=== PATIENT | female | born 1960 | race Caucasian/White ===

== ENCOUNTER → 2016-10-01 | Outpatient (CLI) | payer OTHER ==
[~2016-10-01] MED LIST: CALCTAB65 PO; CLON0.5T3 PO; DOXY100C76 PO; FEXO1TAB46 PO; HYDR200T5 PO; IBUP-1050 PO; LIFI5DRO OPB; LORA-741 PO; MEDR2.5T PO; MISCCAP80 PO; MONT1TAB3 PO; MULT-330 PO; MULT-506 PO; OMEG10007 PO; RSTOPS OPB; SERT25TA PO; [UNRECOGNIZED DRUG - CODE] PO; [UNRECOGNIZED DRUG - OTHER] PO
--- NOTE | 2016-10-01 12:03 | DIAGNOSTIC IMAGING REPORT ---
PELVIS 1 OR 2 VIEW ROUTINE CLINICAL HISTORY: Polyarthralgia. Pelvic pain. COMPARISON STUDY: 03/18/2011 FINDINGS: No fractures are visualized. There are no erosive or destructive changes. The joint space of each hip appear well-preserved for age. There are several pelvic basin calcifications likely representing a phlebolith. There is a probable surgical clip within the left hemipelvis. IMPRESSION: Unremarkable bony pelvis for age Electronically signed by: Pillo Gloria M.D. 10/01/2016 12:02 PM Dictated Date/Time: 10/01/2016 11:56 AM
--- NOTE | 2016-10-01 12:04 | DIAGNOSTIC IMAGING REPORT ---
RIGHT HAND MIN 3 VIEWS ROUTINE CLINICAL HISTORY: Right hand pain. Polyarthritis. COMPARISON: None. DISCUSSION: No fractures are visualized. There are no dislocations. There are no erosive or destructive lesions. There are minor osteoarthritic changes most pronounced the level the first carpal metacarpal joint. IMPRESSION: 1. Mild osteoarthritic change 2. No evidence of erosive disease Electronically signed by: Pillo Gloria M.D. 10/01/2016 12:03 PM Dictated Date/Time: 10/01/2016 12:02 PM
--- NOTE | 2016-10-01 12:05 | DIAGNOSTIC IMAGING REPORT ---
RIGHT FOOT MIN 3 VIEWS ROUTINE CLINICAL HISTORY: Polyarthralgia. Right foot pain COMPARISON: None. DISCUSSION: No fractures are visualized. There are osteoarthritic changes the level the first metatarsal phalangeal joint. There are subchondral cysts present. There is no erosive disease. IMPRESSION: 1. No acute fractures 2. Osteoarthritic changes the level the first metatarsal phalangeal joint 3. No evidence of erosive disease Electronically signed by: Pillo Gloria M.D. 10/01/2016 12:04 PM Dictated Date/Time: 10/01/2016 12:03 PM
--- NOTE | 2016-10-01 12:06 | DIAGNOSTIC IMAGING REPORT ---
L-SPINE MIN 4 VIEWS ROUTINE CLINICAL HISTORY: Low back pain. Polyarthralgia. COMPARISON: Lumbar spine radiographs November 29, 2014. FINDINGS: There is slight rightward curvature of the lumbar spine. This is unchanged. Alignment is otherwise anatomic. Vertebral body heights are maintained. There is no fracture or suspicious lesion. Sacroiliac joints are intact. Disc spaces are preserved. There is mild multilevel facet arthrosis and osteophytosis. IMPRESSION: 1. No lumbar spine fracture. 2. Mild multilevel degenerative disc disease and facet arthrosis of the lumbar spine. 3. Slight rightward curvature of the lumbar spine which is unchanged. Electronically signed by: Elijah Hernandez M.D. 10/01/2016 12:05 PM Dictated Date/Time: 10/01/2016 12:03 PM
[2016-10-01 13:20] LABS: C-REACTIVE PROTEIN < 0.29 mg/dl (0-0.29); TOTAL IRON BINDING CAPACITY 351 mcg/dl (250-450)
[2016-10-04 18:27] LABS: ALBUMIN 4.4 G/DL (3.8-4.8); ANTI-CENTROMERE AB <1.0 NEG AI (<1.0 NEG); ANTI-SS-A <1.0 NEG AI (<1.0 NEG); ANTI-SS-B <1.0 NEG AI (<1.0 NEG); CYCLIC CITRULLINATED PEPT IGG <16 UNITS (<20); DNA ds CRITHIDIA NEGATIVE (NEGATIVE); GAMMA GLOBULIN 0.8 G/DL (0.8-1.7); Sm Antibody <1.0 NEG AI (<1.0 NEG); TOTAL PROTEIN 6.7 G/DL (6.2-8.3)
== END | disposition home or self-care (01) ==
LOC: C.RAD1850 11:24
PROVIDERS: ATTEND Internal Medicine Rheumatology
DX: M25.50 Pain in unspecified joint (principal); M54.5 Low back pain; M79.642 Pain in left hand

== ENCOUNTER → 2016-11-01 | Outpatient (CLI) | payer OTHER ==
--- NOTE | 2016-11-04 14:00 | MAMMOGRAPHY REPORT ---
BILATERAL DIGITAL SCREENING MAMMOGRAM TOMOSYNTHESIS WITH CAD: 11/01/2016 CLINICAL HISTORY: Routine screening. Patient has no complaints. TECHNIQUE: Breast tomosynthesis in addition to standard 2D mammography was performed. Current study was also evaluated with a Computer Aided Detection (CAD) system. Bilateral CC and MLO 2-D and td synthesis images were obtained. Tomosynthesis images were obtained of the implant displaced views o nly. COMPARISON: Comparison is made to exams dated: 09/20/2014 mammogram, 11/01/2015 mammogram, 09/17/2013 m ammogram, 08/10/2012 mammogram, and 07/13/2010 mammogram - [facility]. BREAST COMPOSITION: The tissue of both breasts is heterogeneously dense, which may obscure small ma sses. FINDINGS: There is a newly visualized oval circumscribed 4 mm mass seen within the right superior br east on the MLO view, thought to project laterally on the cc view, for which ultrasound and possible additional spot compression views are recommended for further evaluation. This may represent a cys t or potentially an intramammary lymph node. The remainder of both breasts are stable compared to prior exams, without suspicious masses, calcifi cations, or areas of architectural distortion noted. Bilateral subpectoral saline implants are inta ct. IMPRESSION: ACR BI-RADS CATEGORY 0: INCOMPLETE EVALUATION: NEED ADDITIONAL IMAGING EVALUATION Right superior breast mass, for which additional imaging evaluation is recommended. The patient rosa l be called to schedule an appointment. Approximately 10% of breast cancers are not detected with mammography. A negative mammographic repor t should not delay biopsy if a clinically suggestive mass is present. Radha Lopez M.D. ah/:11/01/2016 16:41:20 Quantitative Analyst Developer: Reanna TALLEY(Jomar)(M), [facility] letter sent: Addl Imaging 0 BI-RADS Code: ACR BI-RADS Category 0: Incomplete Evaluation: Need Additional Imaging Evaluation
== END | disposition home or self-care (01) ==
LOC: C.MAMM 09:59
PROVIDERS: ATTEND Obstetrics & Gynecology
DX: Z12.31 Encounter for screening mammogram for malignant neoplasm of breast (principal); Z98.82 Breast implant status; N63 Unspecified lump in breast

== ENCOUNTER → 2016-11-06 | Outpatient (CLI) | payer OTHER ==
--- NOTE | 2016-11-06 14:25 | MAMMOGRAPHY REPORT ---
ULTRASOUND OF RIGHT BREAST: 11/06/2016 CLINICAL HISTORY: Callback from screening mammogram for right breast mass. COMPARISON: Comparison is made to exams dated: 09/20/2014 mammogram, 11/01/2015 mammogram, 09/17/2013 m ammogram, 08/10/2012 mammogram, and 07/30/2011 mammogram - [facility]. TECHNIQUE: Real-time targeted ultrasound of the right breast was performed. FINDINGS: Real-time, high resolution targeted ultrasound was performed of the right upper outer jie drant in the region of the circumscribed mammographic mass seen on the recent screening mammogram. In the right breast at 9:00, approximately 5 cm from the nipple, there is a lobulated circumscribed anechoic mass with a few thin internal septations, measuring 6 x 3 x 4 mm. This is consistent with a benign cyst cluster. A similar appearing circumscribed anechoic mass with a thin internal septati on is also seen within the right breast at 10:00, 3 cm from the nipple, measuring 4 x 3 mm, also con sistent with a benign cyst. One of these is felt to correspond with the mammographic mass. An anec hoic 2 mm benign simple cyst is also seen within the right breast at 10:00, 2 cm from the nipple. N o suspicious solid masses were evident. IMPRESSION: ACR BI-RADS CATEGORY 2: BENIGN Two small benign cyst clusters seen within the right breast at 9 and 10:00 on ultrasound, one of whi ch corresponds with the mammographic mass. There is no sonographic evidence of malignancy. A 1 yea r screening mammogram is recommended. The patient was verbally notified of the results. Radha Lopez M.D. /:11/06/2016 08:54:36 Quality Technician: Radha Lopez MD, [facility] letter sent: Normal 1/2 BI-RADS Code: ACR BI-RADS Category 2: Benign
== END | disposition home or self-care (01) ==
LOC: C.MAMM 08:16
PROVIDERS: ATTEND Obstetrics & Gynecology
DX: N63 Unspecified lump in breast (principal)

== ENCOUNTER → 2016-11-30 | Outpatient (CLI) | payer OTHER ==
[~2016-11-30] MED LIST changes: -CLON0.5T3 PO; -DOXY100C76 PO; -RSTOPS OPB
[2016-11-30 13:34] LABS: BASO % 0.4 %; BASO ABS # 0.02 K/uL (0-0.2); COMPLETE YES; EOS % 0.7 %; HEMATOCRIT 40.6 % (37-47); IG% 0.2 %; LYMPH % 30.3 %; LYMPH ABS # 1.64 K/uL (1.2-3.4); MEAN CELL VOLUME 89.8 fL (80-100); MEAN CORPUSCULAR HGB CONC 34.5 g/dl (32-36); MEAN PLATELET VOLUME 11.5 fL (7.4-10.4); MONO % 9.8 %; NEUT % 58.6 %; PLATELET COUNT 177 K/uL (130-400); RED BLOOD COUNT 4.52 M/uL (4.2-5.4); WHITE BLOOD COUNT 5.41 K/uL (4.8-10.8)
== END | disposition home or self-care (01) ==
LOC: C.LABBC 11:38
PROVIDERS: ATTEND Anesthesiology
DX: Z01.812 Encounter for preprocedural laboratory examination (principal)

== ENCOUNTER 2016-12-28 11:59 | Emergency (ER) | payer OTHER ==
[~2016-12-28] VITALS: Ht 172.7 cm; Wt 57.0 kg
[~2016-12-28 11:59] MED LIST changes: -LORA-741 PO; -MULT-330 PO; -OMEG10007 PO; -[UNRECOGNIZED DRUG - CODE] PO
[2016-12-28 12:01] VITALS: TEMP 36.5; Ht 172.7 cm; Wt 57.0 kg
[2016-12-28] MEDS ORDERED: MULT-330 PO (12:19)
[2016-12-28] MEDS ORDERED: [UNRECOGNIZED DRUG - CODE] PO (12:19)
[2016-12-28] MEDS ORDERED: OMEG10007 PO (12:19)
--- NOTE | 2016-12-28 13:14 | DIAGNOSTIC IMAGING REPORT ---
CHEST ONE VIEW PORTABLE CLINICAL HISTORY: CP dyspnea COMPARISON STUDY: N8 2010 FINDINGS: The bones soft tissues and hemidiaphragms are normal. The cardiomediastinal silhouette is normal. The lungs are clear. The pulmonary vasculature is normal. IMPRESSION: Negative chest. Electronically signed by: Salvador Harris M.D. 12/28/2016 1:13 PM Dictated Date/Time: 12/28/2016 1:13 PM
[2016-12-28 13:31] LABS: BASO % 0.6 %; BASO ABS # 0.02 K/uL (0-0.2); COMPLETE YES; EOS % 1.4 %; HEMATOCRIT 38.4 % (37-47); LYMPH % 37.1 %; LYMPH ABS # 1.29 K/uL (1.2-3.4); MEAN CELL VOLUME 91.9 fL (80-100); MEAN CORPUSCULAR HEMOGLOBIN 31.1 pg (25-34); MEAN CORPUSCULAR HGB CONC 33.9 g/dl (32-36); MEAN PLATELET VOLUME 11.4 fL (7.4-10.4); MONO % 9.5 %; NEUT % 51.4 %; PLATELET COUNT 172 K/uL (130-400); RED BLOOD COUNT 4.18 M/uL (4.2-5.4); WHITE BLOOD COUNT 3.48 K/uL (4.8-10.8)
[2016-12-28 13:40] LABS: PARTIAL THROMBOPLASTIN RATIO 0.9; PROTHROMBIN TIME (PATIENT) 10.8 SECONDS (9.0-12.0)
--- NOTE | 2016-12-28 13:47 | DIAGNOSTIC IMAGING REPORT ---
Venous Doppler left leg LEFT VENOUS DOPP LOWER EXT UNILAT CLINICAL HISTORY: LLE pain pain. Edema. TECHNIQUE: Venous Doppler COMPARISON STUDY: None FINDINGS: Normal study IMPRESSION: Normal study Electronically signed by: Salvador Harris M.D. 12/28/2016 1:45 PM Dictated Date/Time: 12/28/2016 1:45 PM
[2016-12-28 13:58] LABS: BUN/CREATININE RATIO 18.8 (10-20); CALCIUM 8.8 mg/dl (8.5-10.1); CREATININE 0.92 mg/dl (0.60-1.20); POTASSIUM 3.9 mmol/L (3.5-5.1)
--- NOTE | 2016-12-28 14:18 | EMERGENCY ROOM VISIT NOTE ---
History Report prepared by Joon: Jaylon Barreto Under the Supervision of: Dr. Clarissa Celis M.D. First contact with patient: 12:32 Chief Complaint: REFERRED BY DOCTOR Stated Complaint: PAIN IN LEFT CALF, PAIN IN CHEST History of Present Illness The patient is a 56 year old female who presents to the Emergency Room with complaints of left calf pain that began 5 days ago. She rates her pain a 5/10 in severity. Personally, she does not have a history of DVT's, but her sister does, so she wanted to get checked. She then began to experience chest pain and a dry cough with exertion. She does not have a history of smoking. She denies any fevers, abdominal pain, emesis, and chest pain at rest. She has some chest discomfort with deep breaths. She is currently taking estrogen supplements. Her pain does not radiate to other places. She had a cervical epidural in October due to pain. She was very sedentary secondary to the pain. Source of History: patient Onset: 5 days ago Position: leg (left) Symptom Intensity: 5/10 Quality: ache Timing: constant Modifying Factors (Worsening): exertion Associated Symptoms: + cough, No abdominal pain, No chest pain (None at rest , some with exertion), No fevers, No vomiting Review of Systems See HPI for pertinent positives & negatives. A total of 10 systems reviewed and were otherwise negative. Past Medical & Surgical Medical Problems: (1) No Known Active Medical Problems Surgical Problems: (1) History of appendectomy (2) Hx of spinal fusion Family History Omitted secondary to age. Social History Smoking Status: Former Smoker Smokeless Tobacco Use: No Drug Use: none Marital Status: Housing Status: lives with family Current/Historical Medications Scheduled Calcium Carbonate-Vitamin D (Calcium 500 + D), 1 CHW PO BID Esterified Estrogens (Menest), 1 TAB PO Q2D Fexofenadine Hcl (Rosa), 180 MG PO DAILY Fish Oil ([place]-3), 1 CAP PO TIDM Lifitegrast (Xiidra), 1 DROP OPB BID Multiple Minerals W/ Vitamins (Multi Usama Minerals), 1 TAB PO TIDM Multivitamin (Multivitamin), 1 TAB PO DAILY Sertraline (Zoloft), 25 MG PO DAILY Scheduled PRN Ibuprofen (Advil), 400 MG PO UD PRN for Headache or Pain Probiotic Product (Probiotic), 1 CAP PO DAILY PRN for COLON HEALTH Allergies Coded Allergies: Adhesives (Verified Allergy, Unknown, RASH, 12/28/16) Sulfa Drugs (Verified Allergy, Unknown, TONGUE SWELLING, 12/28/16) Physical Exam Vital Signs Date Time Temp Pulse Resp B/P Pulse Ox O2 Delivery O2 Flow Rate FiO2 12/28/16 14:47 65 16 121/82 100 12/28/16 14:27 57 15 122/80 98 Room Air 12/28/16 13:00 64 16 128/83 97 Room Air 12/28/16 12:01 36.5 77 16 135/85 96 Room Air Physical Exam Vital signs reviewed. General: Well-appearing female, in no significant distress. HEENT: No scleral icterus, PERRLA, neck supple. Atraumatic. Cardiovascular: Regular rate and rhythm, no extra sounds. Pulmonary: Clear to auscultation bilaterally, normal work of breathing. Abdomen: Soft, nontender, nondistended, positive bowel sounds. Musculoskeletal: Mild tenderness over the left proximal calf. No swelling. Neurologic: Patient awake alert and oriented x 3, full strength in all 4 extremities. Cranial nerves 2 through 12 grossly intact. Skin: Warm, dry, no rash Medical Decision & Procedures ER Provider Diagnostic Interpretation: X-ray results as stated below per interpretation by me and the radiologist: Venous Doppler left leg LEFT VENOUS DOPP LOWER EXT UNILAT CLINICAL HISTORY: LLE pain pain. Edema. TECHNIQUE: Venous Doppler COMPARISON STUDY: None FINDINGS: Normal study IMPRESSION: Normal study Electronically signed by: Salvador Harris M.D. 12/28/2016 1:45 PM Dictated Date/Time: 12/28/2016 1:45 PM CHEST ONE VIEW PORTABLE CLINICAL HISTORY: CP dyspnea COMPARISON STUDY: N8 2010 FINDINGS: The bones soft tissues and hemidiaphragms are normal. The cardiomediastinal silhouette is normal. The lungs are clear. The pulmonary vasculature is normal. IMPRESSION: Negative chest. Electronically signed by: Salvador Harris M.D. 12/28/2016 1:13 PM Dictated Date/Time: 12/28/2016 1:13 PM Laboratory Results 12/28/16 13:05 Red Blood Count 4.18, Mean Corpuscular Volume 91.9, Mean Corpuscular Hemoglobin 31.1, Mean Corpuscular Hemoglobin Concent 33.9, Mean Platelet Volume 11.4, Neutrophils (%) (Auto) 51.4, Lymphocytes (%) (Auto) 37.1, Monocytes (%) (Auto) 9.5, Eosinophils (%) (Auto) 1.4, Basophils (%) (Auto) 0.6, Neutrophils # (Auto) 1.79, Lymphocytes # (Auto) 1.29, Monocytes # (Auto) 0.33, Eosinophils # (Auto) 0.05, Basophils # (Auto) 0.02 12/28/16 13:05 Test 12/28/16 13:05 12/28/16 13:12 White Blood Count 3.48 K/uL (4.8-10.8) Red Blood Count 4.18 M/uL (4.2-5.4) Hemoglobin 13.0 g/dL (12.0-16.0) Hematocrit 38.4 % (37-47) Mean Corpuscular Volume 91.9 fL (80-100) Mean Corpuscular Hemoglobin 31.1 pg (25-34) Mean Corpuscular Hemoglobin Concent 33.9 g/dl (32-36) Platelet Count 172 K/uL (130-400) Mean Platelet Volume 11.4 fL (7.4-10.4) Neutrophils (%) (Auto) 51.4 % Lymphocytes (%) (Auto) 37.1 % Monocytes (%) (Auto) 9.5 % Eosinophils (%) (Auto) 1.4 % Basophils (%) (Auto) 0.6 % Neutrophils # (Auto) 1.79 K/uL (1.4-6.5) Lymphocytes # (Auto) 1.29 K/uL (1.2-3.4) Monocytes # (Auto) 0.33 K/uL (0.11-0.59) Eosinophils # (Auto) 0.05 K/uL (0-0.5) Basophils # (Auto) 0.02 K/uL (0-0.2) RDW Standard Deviation 46.0 fL (36.4-46.3) RDW Coefficient of Variation 13.7 % (11.5-14.5) Immature Granulocyte % (Auto) 0.0 % Immature Granulocyte # (Auto) 0.00 K/uL (0.00-0.02) Prothrombin Time 10.8 SECONDS (9.0-12.0) Prothromb Time International Ratio 1.0 (0.9-1.1) Activated Partial Thromboplast Time 24.5 SECONDS (21.0-31.0) Partial Thromboplastin Ratio 0.9 Anion Gap 4.0 mmol/L (3-11) Est Creatinine Clear Calc Drug Dose 60.0 ml/min Estimated GFR () 79.6 Estimated GFR (Non- 68.6 BUN/Creatinine Ratio 18.8 (10-20) Calcium Level 8.8 mg/dl (8.5-10.1) Total Bilirubin 1.0 mg/dl (0.2-1) Direct Bilirubin 0.2 mg/dl (0-0.2) Aspartate Amino Transf (AST/SGOT) 31 U/L (15-37) Alanine Aminotransferase (ALT/SGPT) 36 U/L (12-78) Alkaline Phosphatase 44 U/L (45-117) Total Protein 6.7 gm/dl (6.4-8.2) Albumin 3.7 gm/dl (3.4-5.0) Bedside D-Dimer 313 ng/mlFEU (0-450) Laboratory results per my review. ECG Indication: chest pain Rate (beats per minute): 63 Rhythm: normal sinus Findings: no acute ischemic change, no ectopy, other (Questionable old septal infarct) ED Course 1232: Past medical records reviewed. The patient was evaluated in room B9. A complete history and physical examination was performed. 1445: Upon reevaluation, the patient appeared to have improvement of her symptoms. I discussed findings with her. She verbalized agreement of the treatment plan. She was discharged home. Medical Decision Differential diagnosis: Etiologies such as cardiac ischemia, aortic dissection, pulmonary embolism, pneumonia, pneumothorax, musculoskeletal, infections, pericarditis, myocarditis , esophageal rupture, gastrointestinal, as well as others were entertained. This patient was evaluated and appeared to be in no significant distress. Physical examination is fairly unrevealing. Ultrasound of the left lower extremity was obtained and is negative for DVT. Chest x-ray was performed and is negative. Laboratory work reveals negative cardiac enzymes, d-dimer is normal. EKG reveals no evidence of acute ischemia. Patient was informed of the findings. At this time there is no evidence of cardiac ischemia or thromboembolic disease. She will be discharged follow-up with the primary care physician and asked to return to the ER for worsening of symptoms or any medical concerns. Impression Primary Impression: Left sided chest pain Additional Impression: Pain of left calf Scribe Attestation The scribe's documentation has been prepared under my direction and personally reviewed by me in its entirety. I confirm that the note above accurately reflects all work, treatment, procedures, and medical decision making performed by me. Departure Information Dispostion Home / Self-Care Referrals Sunny Dickey M.D. (PCP) Bertin Mckenzie M.D. Forms HOME CARE DOCUMENTATION FORM, IMPORTANT VISIT INFORMATION, WORK / SCHOOL INSTRUCTIONS Patient Instructions My [facility] Additional Instructions Diagnosis: Chest pain, calf pain Ibuprofen 600 mg every 6 hours as needed for pain with food. Drink plenty of fluids. Follow up with your doctor this week for reevaluation. Return to emergency for worsening of symptoms or any medical concerns. Problem Qualifiers
[2016-12-28 14:47] VITALS: BP 121/82; PULSE 65; O2SAT 100
== END 2016-12-28 14:49 | disposition home or self-care (01) ==
LOC: C.EDB 11:59
DX: M79.662 Pain in left lower leg (principal); R07.9 Chest pain, unspecified; Z98.1 Arthrodesis status; Z87.891 Personal history of nicotine dependence; Z79.899 Other long term (current) drug therapy

== ENCOUNTER → 2017-02-10 | Outpatient (CLI) | payer OTHER ==
[~2017-02-10] MED LIST changes: -HYDR200T5 PO; -MONT1TAB3 PO; +MULT-330 PO; +OMEG10007 PO; +[UNRECOGNIZED DRUG - CODE] PO; -[UNRECOGNIZED DRUG - OTHER] PO
== END | disposition home or self-care (01) ==
LOC: C.PAPS 15:49
PROVIDERS: ATTEND Physician Assistant
DX: Z12.4 Encounter for screening for malignant neoplasm of cervix (principal)

== ENCOUNTER 2017-03-24 12:22 | Inpatient (IN) | payer OTHER ==
[~2017-03-24] VITALS: Ht 172.7 cm; Wt 59.6 kg
[~2017-03-24 12:22] MED LIST changes: -MEDR2.5T PO
[2017-03-24] MEDS ORDERED: ONDANSETRON INJ 2 MG/ML 2 ML VIAL IV STA (12:31)
[2017-03-24] MEDS ORDERED: MoRPHine SULFATE 4 MG/ML 1 ML CARP\\VIAL IV STA (12:31)
[2017-03-24] MEDS ORDERED: SODIUM CHLORIDE 0.9% 1000ML 1,000 ML IV ONE (12:31)
[2017-03-24] MEDS ORDERED: SODIUM CHLORIDE 0.9% 1000ML 1,000 ML IV STA (12:31)
[2017-03-24] MEDS ORDERED: MEDR2.5T PO (12:36)
--- NOTE | 2017-03-24 12:41 | EMERGENCY ROOM VISIT NOTE ---
History Report prepared by Joon: Bruce Reece Under the Supervision of: Dr. Prem Randall M.D. First contact with patient: 12:24 History of Present Illness The patient is a 56 year old female who presents to the Emergency Room with complaints of worsening back pain after getting thrown off of a horse prior to arrival. The patient states that she was riding a horse, and it bucked, and she fell off and landed on her lower back. She states that she was wearing a helmet , and she does not think that she hit her head. She additionally states that she is having some neck pain. The patient denies any abdominal pain, teeth pain , jaw pain, chest pain, or leg pain. She states that she has some tingling in her hands, though this occasionally happens. The patient states that the pain is not worsened with breathing. The patient states that she has a history of a fusion in her neck, though she has no other medical problems, and she does not take any blood thinners. Source of History: patient Onset: prior to arrival Position: back (lower) Timing: worsening Associated Symptoms: + neck pain, No chest pain, No SOB, No abdominal pain Review of Systems See HPI for pertinent positives & negatives. A total of 10 systems reviewed and were otherwise negative. Past Medical & Surgical Medical Problems: (1) Burst fracture of lumbar vertebra (2) No Known Active Medical Problems Surgical Problems: (1) History of appendectomy (2) Hx of spinal fusion Old medical records were reviewed. Nurse's notes were reviewed and I agree with. Social History Smoking Status: Former Smoker Drug Use: none Marital Status: Housing Status: lives with family Current/Historical Medications Scheduled Esterified Estrogens (Menest), 1 TAB PO DAILY Fexofenadine Hcl (Rosa), 180 MG PO DAILY Medroxyprogesterone (Provera), 2.5 MG PO DAILY Sertraline (Zoloft), 25 MG PO DAILY Scheduled PRN Ibuprofen (Advil), 400 MG PO UD PRN for Headache or Pain Allergies Coded Allergies: Adhesives (Verified Allergy, Unknown, RASH, 12/28/16) Sulfa Antibiotics (Verified Allergy, Unknown, TONGUE SWELLS, 03/24/17) Physical Exam Vital Signs Date Time Temp Pulse Resp B/P (MAP) Pulse Ox O2 Delivery O2 Flow Rate FiO2 03/24/17 13:56 72 18 122/74 97 Room Air 03/24/17 12:27 37.0 65 18 100/74 100 Room Air Physical Exam General: Well developed well nourished in no acute distress, breathing comfortably on room air. Normal speech. Glascow coma score of 15 HEENT: Normal cephalic atraumatic. Pupils are equal round and reactive to light. Extraocular movements are intact. Oropharynx is pink with moist mucous membranes. No swelling of the mouth lips or tongue. No hyphema. No blood from the nose or septal hematoma. Mid face is stable. No dental trauma or malocclusion. Neck: Collared with a midline trachea. No meningeal signs or stiffness. No midline tenderness. No Stridor. Chest: Clear to auscultation bilaterally. No wheezes or rhonchi. No increased work of breathing. No rib or sternal tenderness. No subcutaneous air. No seat belt avelar or external signs of trauma. Heart: Regular rate and rhythm without murmurs or gallops. Abdomen: Soft nontender, nondistended without rebound guarding or rigidity. No seatbelt avelar or external signs of trauma Extremities: No cyanosis clubbing or edema. No calf tenderness or asymmetry. Spine/Back. Diffuse tenderness along the left posterior pelvis and lower lumbar spine . No CVA tenderness. Skin: Good turgor without rashes. Neurologic exam: Cranial nerves two through 12 are intact. Motor and sensation are intact and symmetrical throughout. Normal level of consciousness Medical Decision & Procedures ER Provider Diagnostic Interpretation: Radiology results as stated below per my review and radiologist interpretation: LUMBAR SPINE WITHOUT CLINICAL HISTORY: 56 years-old Female presenting with eval for trauma, thrown from horse. TECHNIQUE: Multidetector CT of the lumbar spine was performed without the use of intravenous contrast. IV contrast: None. A dose lowering technique was used consistent with the principles of ALARA (as low as reasonably achievable). COMPARISON: Plain radiographs from 10/01/2016. CT DOSE (mGy.cm): The estimated cumulative dose is 280.3 inclusive of the abdomen and pelvis. FINDINGS: Grinding Machine Operator Automatic topogram: Unremarkable. Mild deformity of the superior endplate of L1 with anterior greater than posterior vertebral body height loss of L1. Convexity of the superior portion of L1 posteriorly resulting in mild effacement of the spinal canal. Irregularity and convexity of the anterior portion of L1 also noted. Remaining vertebral bodies demonstrate normal height and alignment. Intervertebral disc spaces preserved. No significant degenerative change. No osseous neural foraminal narrowing. Paraspinal soft tissues suggest mild infiltration of paraspinal fat planes at the level of L1 with the remainder of paraspinal soft tissues within normal limits. IMPRESSION: Evidence of acute burst-type fracture of L1 with mild retropulsion of fracture fragments into the spinal canal. MR would better characterize the degree of spinal canal narrowing if clinically warranted. The report will be called/faxed according to standard departmental protocol. Electronically signed by: Tim Reed M.D. 03/24/2017 1:36 PM Dictated Date/Time: 03/24/2017 1:31 PM CERVICAL SPINE W/O CT DOSE: 252.35 mGy.cm HISTORY: Trauma eval for trauma TECHNIQUE: Multiaxial CT images of the cervical spine were performed and reformatted in the sagittal and coronal plane without the use of contrast. A dose lowering technique was utilized adhering to the principles of ALARA. COMPARISON: None. FINDINGS: No fractures. No subluxation. Prevertebral soft tissues and the C1-C2 interval are intact. No pneumothorax. Evidence for an anterior fusion at C5-C6. IMPRESSION: No fractures within the cervical spine. Postoperative change is noted The above report was generated using voice recognition software. It may contain grammatical, syntax or spelling errors. Electronically signed by: Salvador Harris M.D. 03/24/2017 1:17 PM Dictated Date/Time: 03/24/2017 1:10 PM ABDOMEN AND PELVIS CT WITH IV CONTRAST CT DOSE: 280.30 mGy.cm HISTORY: Fall from horse. Generalized abdominal pain. Low back pain. eval for trauma TECHNIQUE: Multiaxial CT images of the abdomen and pelvis were performed following the use of intravenous contrast. A dose lowering technique was utilized adhering to the principles of ALARA. COMPARISON STUDY: None. FINDINGS: There is an acute superior endplate compression fracture at L1 which demonstrates 4 mm of retropulsion of the posterior superior corner with mild central canal narrowing. Bilateral breast augmentation. Mild dependent changes seen within the lung bases posteriorly. No pneumoperitoneum. No pneumatosis. The liver, gallbladder, spleen, adrenal glands, and pancreas are unremarkable. An 8 mm hypodense lesion within the left kidney is too small to characterize but favors a cyst. Normal right kidney. No hydronephrosis. A left circumaortic renal vein. No retroperitoneal lymphadenopathy. A surgical clip in the left adnexa. The bladder and uterus are unremarkable. There is a pessary device identified. Mild subcutaneous fat straining within the right gluteal region. This favors a small soft tissue contusion. No bowel wall thickening or obstruction. IMPRESSION: 1. Mild acute superior endplate compression/burst fracture at L1 which demonstrates 4 mm of retropulsion and mild central canal narrowing. 2. Small subcutaneous right gluteal soft tissue contusion. Electronically signed by: Tal Bravo M.D. 03/24/2017 1:53 PM Dictated Date/Time: 03/24/2017 1:20 PM Laboratory Results Test 03/24/17 12:56 Bedside Hemoglobin 12.9 g/dl (12.0-16.0) Bedside Hematocrit 38 % (37-47) Bedside Sodium 140 mEq/L (135-144) Bedside Potassium 4.3 mEq/L (3.3-5.0) Bedside Chloride 104 mEq/L (101-112) Bedside Total CO2 22 mEq/l (24-31) Anion Gap 19.0 mmol/L (16-25) Bedside Blood Urea Nitrogen 20 mg/dl (7-18) Bedside Creatinine 1.1 mg/dl (0.6-1.3) Bedside Glucose (other) 143 mg/dl (70-99) Bedside Ionized Calcium (Rekha) 1.21 mmol/l (1.12-1.32) Laboratory studies as stated above per my review. Medications Administered Medications (Trade) Dose Ordered Sig/Up [facility] Route Start Time Stop Time Status Last Admin Dose Admin Sodium Chloride 1,000 ml @ 999 mls/hr Q1H1M STAT IV 03/24/17 12:31 03/24/17 13:31 DC 03/24/17 12:51 999 MLS/HR Sodium Chloride 1,000 ml @ 150 mls/hr Q6H40M ONCE IV 03/24/17 12:31 03/24/17 16:03 DC 03/24/17 12:51 150 MLS/HR Morphine Sulfate (MoRPHine SULFATE INJ) 4 mg NOW STAT IV 03/24/17 12:31 03/24/17 12:34 DC 03/24/17 12:51 4 MG Ondansetron HCl (Zofran Inj) 4 mg NOW STAT IV 03/24/17 12:31 03/24/17 12:34 DC 03/24/17 12:50 4 MG Morphine Sulfate (MoRPHine SULFATE INJ) 2 mg NOW STAT IV 03/24/17 13:58 03/24/17 13:59 DC 03/24/17 14:12 2 MG Oxycodone/ Acetaminophen (Percocet 5-325mg Tab) `1-2 TABS FOR PAIN `1 TAB... Q4H PRN PO 03/24/17 14:15 04/07/17 14:14 03/24/17 15:45 2 TAB Dextrose/Sodium Chloride 1,000 ml @ 75 mls/hr [id number] IV 03/24/17 14:13 04/23/17 14:12 03/24/17 16:14 75 MLS/HR ED Course 1224: Past medical records reviewed. The patient was evaluated in room C8, and a complete history and physical examination were performed. 1231: Zofran Inj 4mg IV, Morphine Sulfate 4mg IV, Sodium Chloride 1000 ml @ 150 mls/hr IV, Sodium Chloride 1000 ml @ 999 mls/hr IV 1240: I reevaluated the patient, and she was just getting her IV started. 1257: I reevaluated the patient, and she is feeling much more comfortable, and she is going to CT. 1326: I reassessed the patient, and she feels much better and is resting comfortably. 1358: Morphine Sulfate 2mg IV 1402: Discussed the patient's case with Dr. Laguna, Orthopedic Surgeon. The patient will be evaluated for further management. 1450: I reevaluated the patient, and she was doing well. Medical Decision Differentials include, but are not limited to; cervical fracture, lumbar fracture, internal injuries, and contusion. This patient comes in as described above. She suffered a mechanical fall from horse. She's complaining of low back pain towards the left buttocks as well as some mild neck pain. She was concerned about her neck as she has had surgery before. She has no numbness or weakness. She denies chest pain or shortness of breath or abdominal pain. She was warned home and denies any loss of consciousness or headache. IV access established and she was given morphine 4 mg IV and Zofran 4 mg IV. She did receive additional morphine 2 mg IV was resting very comfortably with this. I did a CAT scan of her neck which was unremarkable. He also obtained a CAT scan abdomen and pelvis as well as lumbar spine. It shows an L1 burst fracture with a small amount of retropulsion. Again, she is neurologically and neurovascularly intact. I had her rest bed while she was here and I did have Dr. Laguna, our spine surgeon, see her and he will be admitting her for further treatment and pain management. Head Trauma GCS Score: 15 Medication Reconcilliation Current Medication List: was personally reviewed by me Blood Pressure Screening Patient's blood pressure: Normal blood pressure Consults Time Called: 1400 Consulting Physician: Dr. Laguna, Orthopedic Surgery Returned Call: 1402 Discussed the patient's case with Dr. Laguna, Orthopedic Surgeon. The patient will be evaluated for further management. Impression Primary Impression: Fracture of lumbar spine Additional Impression: Cervical strain Scribe Attestation The scribe's documentation has been prepared under my direction and personally reviewed by me in its entirety. I confirm that the note above accurately reflects all work, treatment, procedures, and medical decision making performed by me. Departure Information Dispostion Being Evaluated By Surgeon Referrals ,Sunny Lacey M.D. (PCP) Problem Qualifiers
[2017-03-24 13:06] LABS: ISTAT CREATININE 1.1 mg/dl (0.6-1.3); ISTAT HEMOGLOBIN 12.9 g/dl (12.0-16.0); ISTAT IONIZED CALCIUM 1.21 mmol/l (1.12-1.32)
--- NOTE | 2017-03-24 13:18 | DIAGNOSTIC IMAGING REPORT ---
CERVICAL SPINE W/O CT DOSE: 252.35 mGy.cm HISTORY: Trauma eval for trauma TECHNIQUE: Multiaxial CT images of the cervical spine were performed and reformatted in the sagittal and coronal plane without the use of contrast. A dose lowering technique was utilized adhering to the principles of ALARA. COMPARISON: None. FINDINGS: No fractures. No subluxation. Prevertebral soft tissues and the C1-C2 interval are intact. No pneumothorax. Evidence for an anterior fusion at C5-C6. IMPRESSION: No fractures within the cervical spine. Postoperative change is noted The above report was generated using voice recognition software. It may contain grammatical, syntax or spelling errors. Electronically signed by: Salvador Harris M.D. 03/24/2017 1:17 PM Dictated Date/Time: 03/24/2017 1:10 PM
--- NOTE | 2017-03-24 13:37 | DIAGNOSTIC IMAGING REPORT ---
LUMBAR SPINE WITHOUT CLINICAL HISTORY: 56 years-old Female presenting with eval for trauma, thrown from horse. TECHNIQUE: Multidetector CT of the lumbar spine was performed without the use of intravenous contrast. IV contrast: None. A dose lowering technique was used consistent with the principles of ALARA (as low as reasonably achievable). COMPARISON: Plain radiographs from 10/01/2016. CT DOSE (mGy.cm): The estimated cumulative dose is 280.3 inclusive of the abdomen and pelvis. FINDINGS: Numerologist topogram: Unremarkable. Mild deformity of the superior endplate of L1 with anterior greater than posterior vertebral body height loss of L1. Convexity of the superior portion of L1 posteriorly resulting in mild effacement of the spinal canal. Irregularity and convexity of the anterior portion of L1 also noted. Remaining vertebral bodies demonstrate normal height and alignment. Intervertebral disc spaces preserved. No significant degenerative change. No osseous neural foraminal narrowing. Paraspinal soft tissues suggest mild infiltration of paraspinal fat planes at the level of L1 with the remainder of paraspinal soft tissues within normal limits. IMPRESSION: Evidence of acute burst-type fracture of L1 with mild retropulsion of fracture fragments into the spinal canal. MR would better characterize the degree of spinal canal narrowing if clinically warranted. The report will be called/faxed according to standard departmental protocol. Electronically signed by: Tim Reed M.D. 03/24/2017 1:36 PM Dictated Date/Time: 03/24/2017 1:31 PM
--- NOTE | 2017-03-24 13:54 | DIAGNOSTIC IMAGING REPORT ---
ABDOMEN AND PELVIS CT WITH IV CONTRAST CT DOSE: 280.30 mGy.cm HISTORY: Fall from horse. Generalized abdominal pain. Low back pain. eval for trauma TECHNIQUE: Multiaxial CT images of the abdomen and pelvis were performed following the use of intravenous contrast. A dose lowering technique was utilized adhering to the principles of ALARA. COMPARISON STUDY: None. FINDINGS: There is an acute superior endplate compression fracture at L1 which demonstrates 4 mm of retropulsion of the posterior superior corner with mild central canal narrowing. Bilateral breast augmentation. Mild dependent changes seen within the lung bases posteriorly. No pneumoperitoneum. No pneumatosis. The liver, gallbladder, spleen, adrenal glands, and pancreas are unremarkable. An 8 mm hypodense lesion within the left kidney is too small to characterize but favors a cyst. Normal right kidney. No hydronephrosis. A left circumaortic renal vein. No retroperitoneal lymphadenopathy. A surgical clip in the left adnexa. The bladder and uterus are unremarkable. There is a pessary device identified. Mild subcutaneous fat straining within the right gluteal region. This favors a small soft tissue contusion. No bowel wall thickening or obstruction. IMPRESSION: 1. Mild acute superior endplate compression/burst fracture at L1 which demonstrates 4 mm of retropulsion and mild central canal narrowing. 2. Small subcutaneous right gluteal soft tissue contusion. Electronically signed by: Tal Bravo M.D. 03/24/2017 1:53 PM Dictated Date/Time: 03/24/2017 1:20 PM
[2017-03-24] MEDS ORDERED: MoRPHine SULFATE 2 MG/ML CARP IV STA (13:58)
[2017-03-24] MEDS ORDERED: ONDANSETRON INJ 2 MG/ML 2 ML VIAL IV PRN (14:15)
[2017-03-24] MEDS ORDERED: METOCLOPRAMIDE HCL INJ 5 MG/ML 2 ML VIAL IV PRN (14:15)
[2017-03-24] MEDS ORDERED: IBUPROFEN 200 MG TAB PO PRN (14:30)
[2017-03-24] MEDS ORDERED: MoRPHine SULFATE 4 MG/ML 1 ML CARP\\VIAL IV PRN (14:30)
[2017-03-24] MEDS ORDERED: BISACODYL 5 MG TABEC PO PRN (14:30)
[2017-03-24 14:59] VITALS: O2SAT 97; Ht 172.7 cm; Wt 59.6 kg
--- NOTE | 2017-03-24 15:01 | HISTORY & PHYSICAL EXAMINATION ---
DATE OF ADMISSION: 03/24/2017 CHIEF COMPLAINT: Back pain. SECONDARY COMPLAINT: Neck pain. HISTORY OF PRESENT ILLNESS: Ryann is a most delightful young lady, 56 years of age. She fell off a horse, thrown off a horse exactly prior to the arrival, it was her own horse, she is comfortable with the horse, quite significant injury. She fell straight to her lumbar spine. She was wearing a helmet, does not think it hit her head, had some additional neck pain. Denies any chest pain, shortness of breath, abdominal pain and discomfort, did have some tingling. PAST MEDICAL HISTORY: Negative for hypertension, carcinoma, COPD, diabetes mellitus. SOCIAL HISTORY: Nonsmoker, non-drug user. Minimal alcohol. to Dr. Mckenzie here, the hospital staff. MEDICATIONS: Calcium, estrogen, fish oil, lifitegrast and multiple vitamins. She also takes ibuprofen and a probiotic. ALLERGIES: SULFA. REVIEW OF SYSTEMS: Denies any blurred vision, double vision, tinnitus, vertigo. Denies any chest pain, shortness of breath. No nausea, vomiting, urgency, frequency, dysuria. Major complaint is her lumbar spine. Denies any lower extremity difficulties. PHYSICAL EXAMINATION: VITAL SIGNS: Her blood pressure 130/80, pulse 80 regular at 80 beats per minute, no ectopy. Afebrile. HEENT: Pupils react to light and accommodation. Ear, nose and throat clear. CARDIAC: Normal S1, S2, no S3. Regular rate and rhythm. LUNGS: Clear to auscultation. ABDOMEN: Good bowel sounds in all 4 quadrants. No organomegaly, no guarding, no masses or rigidity. SKIN: Has good turgor. No rashes. NEUROLOGIC: II-XII intact. Motor sensory intact. Vascular structures intact and 2/4 knee jerk, reflexes and Achilles reflex. IMAGING DATA: Images were evaluated. She has a very small burst fracture of the L1 vertebra. It is the classic superior posterior fragment of vertebrae which typically invades the spinal canal. This is a stable injury, it is only 1, possibly 2 column injury is not 3 column injury. There are no other signs of instability. IMPRESSION: Delightful young lady, but a burst fracture, otherwise healthy. DISPOSITION: At this point in time, it sits absolutely nonsurgical problem. She will be admitted to my service for pain control, IV medication, back brace for support. We will get her up on her feet. I anticipate a back brace tomorrow morning, hopefully back up on her feet tomorrow during the day and anticipate the patient being discharged either tomorrow evening, which is the first of March or Friday morning, worst case would be a morning discharge.
[2017-03-24] MEDS: OXYCODONE/ACETAMINOPHEN 5-325 TAB PO PRN ×2 (15:45→21:04)
[2017-03-24] MEDS: D5W AND 1/2NSS 1,000 ML IV SCH (16:14)
[2017-03-24 16:42] LABS: CREATININE 0.88 mg/dl (0.60-1.20)
[2017-03-24] MEDS: KETOROLAC TROMETHAMINE 30 MG/ML VIAL IV. SCH (18:02)
[2017-03-24 20:03] VITALS: BP 94/54; PULSE 62; TEMP 37; O2SAT 96
[2017-03-24 23:20] VITALS: BP 93/54; PULSE 78; TEMP 36.8; O2SAT 95
[2017-03-25] MEDS: KETOROLAC TROMETHAMINE 30 MG/ML VIAL IV. SCH ×4 (00:08→18:00)
[2017-03-25] MEDS: D5W AND 1/2NSS 1,000 ML IV SCH (04:21)
[2017-03-25] MEDS: OXYCODONE/ACETAMINOPHEN 5-325 TAB PO PRN (07:20)
--- NOTE | 2017-03-25 07:31 | Progress Note ---
Subjective Date of Service: Mar 25, 2017. Subjective Pt evaluation today including: conversation w/ patient Voiding: no voiding problems Problem List Medical Problems: (1) Cervical strain Status: Acute (2) Chest pain Status: Acute (3) Fracture of lumbar spine Status: Acute (4) Left sided chest pain Status: Acute (5) Pain of left calf Status: Acute Review of Systems Musculoskeletal: + see HPI All Other Systems: Reviewed and Negative Objective Vital Signs Date Time Temp Pulse Resp B/P (MAP) Pulse Ox O2 Delivery O2 Flow Rate FiO2 03/25/17 00:15 Room Air 03/24/17 23:20 36.8 78 16 93/54 (67) 95 Room Air 03/24/17 20:03 37.0 62 16 94/54 (67) 96 Room Air 03/24/17 16:30 Room Air 03/24/17 15:22 76 18 116/73 97 03/24/17 14:59 97 Room Air 03/24/17 13:56 72 18 122/74 97 Room Air 03/24/17 12:27 37.0 65 18 100/74 100 Room Air Laboratory Results Last 24 Hours Test 03/24/17 12:56 03/24/17 16:17 Bedside Hemoglobin 12.9 g/dl Bedside Hematocrit 38 % Bedside Sodium 140 mEq/L Bedside Potassium 4.3 mEq/L Bedside Chloride 104 mEq/L Bedside Total CO2 22 mEq/l Anion Gap 19.0 mmol/L Bedside Blood Urea Nitrogen 20 mg/dl Bedside Creatinine 1.1 mg/dl Bedside Glucose (other) 143 mg/dl Bedside Ionized Calcium (Rekha) 1.21 mmol/l Creatinine 0.88 mg/dl Est Creatinine Clear Calc Drug Dose 65.6 ml/min Estimated GFR () 83.9 Estimated GFR (Non- 72.4 Assessment and Plan L1 burst fracture Ambulate today with a brace for support also discharged later on this evening is stable physical therapy ordered this morning. We will discharge her Vickers catheter Discharge planning: home
[2017-03-25 07:40] VITALS: BP 118/76; PULSE 64; TEMP 36.4; O2SAT 97
[2017-03-25 08:27] VITALS: O2SAT 97
[2017-03-25] MEDS ORDERED: NURSING VERBAL MED ORDER ONE (08:30)
[2017-03-25] MEDS ORDERED: SERTRALINE HCL 50 MG TAB PO SCH ×2 (09:00→21:00)
[2017-03-25] MEDS ORDERED: FEXOFENADINE HCL 180 MG TAB PO SCH (09:00)
[2017-03-25 09:43] VITALS: BP 107/74; PULSE 63; O2SAT 95
[2017-03-25 15:10] VITALS: BP 107/68; PULSE 74; TEMP 36.8; O2SAT 93
[2017-03-25 17:49] VITALS: BP 107/68; PULSE 74; TEMP 36.8; O2SAT 93
--- NOTE | 2017-03-25 18:01 | Discharge Instructions ---
Discharge Instructions Date of Service Mar 25, 2017. Admission Reason for Admission: Burst Fracture Of Lumbar Vertebra Discharge Discharge Diagnosis / Problem: same Discharge Goals Goal(s): Decrease discomfort, Improve function Activity Recommendations Activity Limitations: as noted below Lifting Limitations: no more than 5 pounds, until after follow-up appointment Exercise/Sports Limitations: until after follow-up appointment May Resume Sexual Activity: after follow-up appointment home, rest , recover . Instructions / Follow-Up Instructions / Follow-Up Call office @ [phone] to make an appointment in 10 days. Careful with bending and lifting. wear back brace as tolerated Current Hospital Diet Patient's current hospital diet: Regular Diet Discharge Diet Recommended Diet: Regular Diet Pending Studies Studies pending at discharge: no Medical Emergencies . Who to Call and When: Medical Emergencies: If at any time you feel your situation is an emergency, please call 911 immediately. . Non-Emergent Contact Non-Emergency issues call your: Surgeon Call Non-Emergent contact if: you have any medication questions . "Provider Documentation" section prepared by Navin Laguna. . VTE Core Measure Inpt VTE Proph given/why not?: Treatment not indicated
--- NOTE | 2017-03-26 01:29 | DISCHARGE SUMMARY ---
ADMITTING DIAGNOSIS: Burst fracture, lumbar. POST ADMISSION DIAGNOSIS: Same. DISCHARGE DIAGNOSIS: Same. The patient was admitted to my service after a fall from a horse yesterday, the 24 of March. She suffered a burst fracture, L1 vertebrae. We stabilized her with a back brace for support. We stabilizer with medication and she was set for discharge the evening of 03/25/2017. She is improved, stable, alert, oriented, pain control. She will be discharged home with prescriptions of a walker with wheels Percocet and Toradol. We will see her back in the office in 10 days. The patient is to call for that appointment. The office number is [phone]. She can call in the next few days to make an appointment for next week in the office. Instructions given to the patient, precautions as well. Simply careful with bending, stooping, lifting. Ambulate using the back brace as much as possible, not absolutely mandatory, but tries to maintain nice upright posture. Also, recommended her getting some Dulcolax tablets to improve bowel motility.
== END 2017-03-25 18:40 | disposition home or self-care (01) | DRG 552 ==
LOC: EDBD 12:22 → C.EDC 12:23 → C.3E 14:18 → CANRESERV 15:04 → ENRESERV 15:04
PROVIDERS: ADMIT Orthopaedic Surgery Orthopaedic Surgery of the Spine; ATTEND Orthopaedic Surgery Orthopaedic Surgery of the Spine
DX: S32.011A Stable burst fracture of first lumbar vertebra, initial encounter for closed fracture (principal); V80.010A Animal-rider injured by fall from or being thrown from horse in noncollision accident, initial encounter; Y93.52 Activity, horseback riding; Z98.1 Arthrodesis status; Z87.891 Personal history of nicotine dependence; Z79.890 Hormone replacement therapy; Z79.899 Other long term (current) drug therapy

== ENCOUNTER → 2017-09-30 | Day surgery (SDC) | payer OTHER ==
[2017-09-25 08:50] VITALS: Ht 172.7 cm; Wt 56.8 kg
[~2017-09-30] VITALS: Ht 172.7 cm; Wt 56.8 kg
[~2017-09-30] MED LIST changes: +CALC600T9 PO; -CALCTAB65 PO; +LIDOCAINE HCL 2% 2 ML VIAL (20MG/ML) ONE; -LIFI5DRO OPB; +MEDR2.5T PO; +MIDAZOLAM HCL 1 MG/ML 2ML VIAL ONE; -MISCCAP80 PO; -MULT-330 PO; -MULT-506 PO; -OMEG10007 PO; +PROPOFOL IV EMULSION 10 MG/ML 20 ML VIAL IV ONE; +SODIUM CHLORIDE 0.9% 500ML 500 ML IV ONE; +TRIA1SPR4 NAE; +[UNRECOGNIZED DRUG - CODE] PO; -[UNRECOGNIZED DRUG - CODE] PO
--- NOTE | 2017-09-30 10:59 | Endo History and Physical ---
History & Physical Date of Service: Sep 30, 2017. Chief Complaint: HISTORY OF POLYPS Referring Physician: DR SLOAN History of Present Illness 56 yo CF who presents for colonoscopy secondary to history of colon polyps. Past Medical History Arthritis, Reflux, Depression Past Surgical History Hx Cardiac Surgery: No Hx Internal Defibrillator: No Hx Pacemaker: No Hx Abdominal Surgery: Yes (APPY) Hx of Implantable Prosthesis: No Hx Post-Op Nausea and Vomiting: No Hx Cancer Surgery: No Hx Thoracic Surgery: No Hx Orthopedic: No Hx Urinary Tract Surgery: No Family History Colon CA Social History Smoking Status: Never Smoker Hx Substance Use: No Hx Alcohol Use: No Allergies Coded Allergies: Adhesives (Verified Allergy, Unknown, RASH, 09/30/17) Sulfa Antibiotics (Verified Allergy, Unknown, TONGUE SWELLS, 09/30/17) Current Medications Reported Home Medications Medications Dose Route/Sig Max Daily Dose Days Date Category Calcium + D (Calcium Carbonate-Vitamin D) 1 Tab Tab 1 Tab PO DAILY 09/25/17 Reported Nasacort Allergy 24Hr (Triamcinolone Acetonide (Nasal) 55 Mcg/Act Spr 2 [place] SANDIE QAM 09/25/17 Reported Menest (Esterified Estrogens) 0.625 Mg Tab 1 Tab PO Q2D 09/25/17 Reported Provera (Medroxyprogesterone Acetate) 2.5 Mg Tab 2.5 Mg PO Q2D 03/24/17 Reported Zoloft (Sertraline HCl) 25 Mg Tab 25 Mg PO QPM 11/10/15 Reported Rosa (Fexofenadine Hcl) 180 Mg Tab 180 Mg PO QAM 04/13/13 Reported Advil (Ibuprofen) 200 Mg Tab 400 Mg PO UD PRN 04/13/13 Reported Vital Signs Weight (Kilograms): 56.82 Height (Feet): 5 Height (Inches): 8 Date Time Temp Pulse Resp B/P (MAP) Pulse Ox O2 Delivery O2 Flow Rate FiO2 09/30/17 10:22 36.5 64 18 124/77 (93) 96 Room Air Physical Exam General Appearance: WD/WN, no apparent distress Respiratory/Chest: Auscultation: breath sounds normal Cardiovascular: Heart Auscultation: RRR Abdomen: Bowel Sounds: normal Inspection & Palpation: soft, non-distended, no tenderness, guarding & rebound Assessment and Plan Assessment: 56 yo CF who presents for colonoscopy secondary to history of colon polyps. Plan: Proceed with colonoscopy.
--- NOTE | 2017-09-30 11:39 | GI REPORT ---
Procedure Date: 09/30/2017 10:55 AM Procedure: Colonoscopy Indications: High risk colon cancer surveillance: Personal history of colonic polyps Medicines: Monitored Anesthesia Care Complications: No immediate complications. Estimated Blood Loss: Estimated blood loss: none. Procedure: Pre-Anesthesia Assessment: - Prior to the procedure, a History and Physical was performed, and patient medications and allergies were reviewed. The patient's tolerance of previous anesthesia was also reviewed. The risks and benefits of the procedure and the sedation options and risks were discussed with the patient. All questions were answered, and informed consent was obtained. Prior Anticoagulants: The patient has taken no previous anticoagulant or antiplatelet agents. ASA Grade Assessment: II - A patient with mild systemic disease. After reviewing the risks and benefits, the patient was deemed in satisfactory condition to undergo the procedure. After I obtained informed consent, the scope was passed under direct vision. Throughout the procedure, the patient's blood pressure, pulse, and oxygen saturations were monitored continuously. The scope was introduced through the anus and advanced to the terminal ileum. The colonoscopy was performed without difficulty. The patient tolerated the procedure well. The quality of the bowel preparation was good. The terminal ileum, ileocecal valve, appendiceal orifice, and rectum were photographed. Findings: The perianal and digital rectal examinations were normal. A 12 mm polyp was found in the ascending colon. The polyp was flat. The polyp was removed with a piecemeal technique using a hot snare. Resection and retrieval were complete. A 3 mm polyp was found in the rectum. The polyp was sessile. The polyp was removed with a cold biopsy forceps. Resection and retrieval were complete. Impression: - One 12 mm polyp in the ascending colon, removed piecemeal using a hot snare. Resected and retrieved. - One 3 mm polyp in the rectum, removed with a cold biopsy forceps. Resected and retrieved. Recommendation: - Resume previous diet. - Continue present medications. - Repeat colonoscopy for surveillance based on pathology results. - Return to primary care physician as previously scheduled. Wes Dick DO 09/30/2017 11:39:17 AM This report has been signed electronically. Note Initiated On: 09/30/2017 10:55 AM I attest to the content of the Intraoperative Record and orders documented therein, exceptions below
--- NOTE | 2017-09-30 11:41 | Discharge Instructions ---
Endoscopy Patient Instructions Date / Procedure(s) Performed Sep 30, 2017. Colonoscopy Allergy Information Coded Allergies: Adhesives (Verified Allergy, Unknown, RASH, 09/30/17) Sulfa Antibiotics (Verified Allergy, Unknown, TONGUE SWELLS, 09/30/17) Discharge Date / Findings Sep 30, 2017. Colon polyp Rectal polyp Medication Instructions OK to resume all medications today as prescribed Reported Home Medications Medications Dose Route/Sig Max Daily Dose Days Date Category Calcium + D (Calcium Carbonate-Vitamin D) 1 Tab Tab 1 Tab PO DAILY 09/25/17 Reported Nasacort Allergy 24Hr (Triamcinolone Acetonide (Nasal) 55 Mcg/Act Spr 2 [place] SANDIE QAM 09/25/17 Reported Menest (Esterified Estrogens) 0.625 Mg Tab 1 Tab PO Q2D 09/25/17 Reported Provera (Medroxyprogesterone Acetate) 2.5 Mg Tab 2.5 Mg PO Q2D 03/24/17 Reported Zoloft (Sertraline HCl) 25 Mg Tab 25 Mg PO QPM 11/10/15 Reported Rosa (Fexofenadine Hcl) 180 Mg Tab 180 Mg PO QAM 04/13/13 Reported Advil (Ibuprofen) 200 Mg Tab 400 Mg PO UD PRN 04/13/13 Reported Provider Instructions Activity Restrictions - No exercising or heavy lifting for 24 hours. - Do not drink alcohol the day of the procedure. - Do not drive a car or operate machinery until the day after the procedure. - Do not make any important decisions or sign important papers in 24 hours after the procedure. Following Day: - Return to full activity which may include returning to work/school. Diet Start your diet with liquids and light foods (jello, soup, juice, toast). Then eat your usual diet if not nauseated. Treatment For Common After Affects For mild abdominal pain, bloating, or excessive gas: - Rest - Eat lightly - Lie on right side Follow-Up Information Follow-up with DR SLOAN as scheduled Anesthesia Information What You Should Know You have had a procedure that required some medicine to reduce anxiety and discomfort. This treatment is called moderate sedation. After receiving the treatment, you may be sleepy, but you will be able to breathe on your own. The effects of the treatment may last for several hours. Follow these instructions along with Activity/Diet recommendations noted above: * Do NOT do anything where dizziness or clumsiness would be dangerous. * Rest quietly at home today, then you can be up and about tomorrow. * Have a responsible person stay with you the rest of today. * You may have had an I.V. today. If so, you may take the dressing off later today. Recommendations Call your doctor if: * Trouble breathing * Continuous vomiting for more than 24 hours * Temperature above 101 degrees * Severe abdominal pain or bloating * Pain not relieved by pain medicine ordered * There is increased drainage or redness from any incision * A large amount of rectal bleeding greater than 2-3 tablespoons. (If you had a polyp/s removed or have hemorrhoids, a small amount of blood - from the rectum is to be expected.) * You have any unanswered questions or concerns. IN THE EVENT OF A SERIOUS EMERGENCY, GO TO THE NEAREST EMERGENCY ROOM Your discharge instructions were prepared by provider Wes Dick. Patient Instructions Signature Page Ryann Mckenzie Patient (or Guardian) Signature/Date: I have read and understand the instructions given to me by my caregivers. Caregiver/RN/Doctor Signature/Date: The above-named patient and/or guardian has received patient instructions on this date. + Original Patient Signature Page (only) stays with chart. Please make copy for patient.
[2017-09-30 12:08] VITALS: BP 119/76; PULSE 65; O2SAT 99
--- NOTE | 2017-09-30 12:59 | Anesthesiology Progress Note ---
Anesthesia Post Op Note Date & Time Sep 30, 2017 at 12:59 Vital Signs Pain Intensity: 0 Vital Signs Past 12 Hours Date Time Temp Pulse Resp B/P (MAP) Pulse Ox O2 Delivery O2 Flow Rate FiO2 09/30/17 12:08 65 18 119/76 (90) 99 Room Air 09/30/17 11:54 65 18 124/88 (100) 100 Room Air 09/30/17 11:39 59 18 122/76 (91) 100 Room Air 09/30/17 10:22 36.5 64 18 124/77 (93) 96 Room Air Notes Mental Status: alert / awake / arousable, participated in evaluation Pt Amnestic to Procedure: Yes Nausea / Vomiting: adequately controlled Pain: adequately controlled Airway Patency, RR, SpO2: stable & adequate BP & HR: stable & adequate Hydration State: stable & adequate Anesthetic Complications: no major complications apparent
== END | disposition home or self-care (01) ==
LOC: C.GI 09:46
PROVIDERS: ATTEND Internal Medicine
DX: Z12.11 Encounter for screening for malignant neoplasm of colon (principal); D12.2 Benign neoplasm of ascending colon; K63.5 Polyp of colon; M19.90 Unspecified osteoarthritis, unspecified site; K21.9 Gastro-esophageal reflux disease without esophagitis; F32.9 Major depressive disorder, single episode, unspecified; K44.9 Diaphragmatic hernia without obstruction or gangrene; F41.9 Anxiety disorder, unspecified; Z90.89 Acquired absence of other organs; Z80.0 Family history of malignant neoplasm of digestive organs; Z88.2 Allergy status to sulfonamides; Z91.048 Other nonmedicinal substance allergy status

== ENCOUNTER → 2017-11-26 | Outpatient (CLI) | payer OTHER ==
[~2017-11-26] MED LIST changes: -LIDOCAINE HCL 2% 2 ML VIAL (20MG/ML) ONE; -MIDAZOLAM HCL 1 MG/ML 2ML VIAL ONE; -PROPOFOL IV EMULSION 10 MG/ML 20 ML VIAL IV ONE; -SODIUM CHLORIDE 0.9% 500ML 500 ML IV ONE
[2017-11-26 09:36] LABS: BASO % 0.5 %; BASO ABS # 0.02 K/uL (0-0.2); EOS % 1.6 %; EOS ABS # 0.07 K/uL (0-0.5); HEMATOCRIT 41.3 % (37-47); IG# 0.01 K/uL (0.00-0.02); LYMPH % 37.4 %; MEAN CORPUSCULAR HEMOGLOBIN 31.2 pg (25-34); MEAN CORPUSCULAR HGB CONC 33.9 g/dl (32-36); MEAN PLATELET VOLUME 11.6 fL (7.4-10.4); MONO % 10.3 %; MONO ABS # 0.44 K/uL (0.11-0.59); NEUT ABS # 2.14 K/uL (1.4-6.5); PLATELET COUNT 164 K/uL (130-400); RED CELL DISTRIBUTION WIDTH CV 13.6 % (11.5-14.5); RED CELL DISTRIBUTION WIDTH SD 45.5 fL (36.4-46.3); WHITE BLOOD COUNT 4.28 K/uL (4.8-10.8)
[2017-11-26 09:45] LABS: ALBUMIN 3.8 gm/dl (3.4-5.0); ALT/SGPT 24 U/L (12-78); BLOOD UREA NITROGEN 16 mg/dl (7-18); CARBON DIOXIDE 27 mmol/L (21-32); GLUCOSE 90 mg/dl (70-99); POTASSIUM 4.1 mmol/L (3.5-5.1); SODIUM 139 mmol/L (136-145)
[2017-11-26 09:55] LABS: ALKALINE PHOSPHATASE 46 U/L (45-117); AST/SGOT 18 U/L (15-37); TOTAL PROTEIN 6.6 gm/dl (6.4-8.2)
== END | disposition home or self-care (01) ==
LOC: C.LAB1850 07:35
PROVIDERS: ATTEND Internal Medicine
DX: D72.819 Decreased white blood cell count, unspecified (principal); M25.50 Pain in unspecified joint; M85.80 Other specified disorders of bone density and structure, unspecified site; R42 Dizziness and giddiness

== ENCOUNTER → 2018-04-02 | Outpatient (CLI) | payer OTHER ==
--- NOTE | 2018-04-02 14:52 | DIAGNOSTIC IMAGING REPORT ---
RENAL ULTRASOUND HISTORY: URINARY SYMPTOMS/PRESSURE/PAIN COMPARISON: Abdomen and pelvis CT 03/24/2017. FINDINGS: Right kidney: 10 cm. No hydronephrosis. Normal corticomedullary differentiation and cortical thickness. Left kidney: 9.6 cm. No hydronephrosis. Normal corticomedullary differentiation and cortical thickness. Bladder: No bladder wall thickening. The bilateral ureteral jets were identified. IMPRESSION: Normal renal ultrasound. Electronically signed by: Tal Bravo M.D. 04/02/2018 2:50 PM Dictated Date/Time: 04/02/2018 2:49 PM
== END | disposition home or self-care (01) ==
LOC: C.ULTR 13:57
PROVIDERS: ATTEND Physician Assistant
DX: R39.9 Unspecified symptoms and signs involving the genitourinary system (principal)